=== PATIENT | female | born 1950 | race Caucasian/White ===

== ENCOUNTER 2016-09-03 09:20 | Day surgery (SDC) | payer MEDICARE ==
[~2016-09-03] VITALS: Ht 165.1 cm; Wt 115.7 kg
--- NOTE | 2016-09-03 07:52 | PCM.HPANE ---
Patient Data Surgeon Admitting Provider: Attending Provider:Rolando Guerrero MD Primary Care Physician:Niyah Byrd MD Other Provider:Lola Bautistaingham Anesthesia Reason for Visit Polyp Of Colon, Iron Defiency Ht/WT & BMI Body Mass Index Allergies Coded Allergies: Thiazides (Verified Allergy, Severe, HYPERURICEMIA, 09/02/16) furosemide (Verified Allergy, Unknown, 09/02/16) Past Anesthesia History Anesthesia History: Positive for:: Abnormal Airway (TOMATO GRADER NOTED "NARROW OROPHARNYX"), Difficult Intubation (At surgery in [place], patient told she was very difficult to place a breathing tube. She has had multiple surgeries at [facility] since then all with LMA's. ), Denies:: Anesthesia Reactions, Malignant Hyperthermia Diabetes History Hx Diabetes?: Yes Type of Diabetes: Type II Glycemic Control: Oral Medication MRSA MRSA: No Medications Blood Thinner: Aspirin Reported Medications Ranitidine (Zantac OTC)75 Mg Teeouz87 Mg PO DAILY #1 PKG Ref 0 09/02/16 Mometasone Furoate (Nasonex)17 Gm [place].pump1 [place] NS DAILY #1 PKG Ref 0 09/02/16 Gabapentin 600 Mg Mjuczh713 Mg PO BID Ref 0 09/02/16 Colchicine (Colcrys)0.6 Mg Tablet0.6 Mg PO PRN GOUT 09/02/16 Aspirin 81 Mg Vbulis84 Mg PO DAILY Ref 0 09/02/16 Citalopram 20 Mg Bmuxzv06 Mg PO DAILY Ref 0 05/24/15 Fluticasone Propionate (Flonase Allergy Relief)50 Mcg/Actuation [place].susp2 Ml NS BID 11/23/14 Amlodipine (Norvasc)5 Mg Lpwebz66 Mg PO DAILY 30 Days Ref 0 04/02/14 Probenecid/Colchicine 500-0.5 mg 1 Each Tablet1 Each PO DAILY 03/09/14 Atenolol 100 Mg Wlcclt10 Mg PO DAILY Ref 0 03/09/14 Fluoxetine 20 Mg Hgjqgps32 Mg PO DAILY Ref 0 12/23/13 Lovastatin 20 Mg Mtdfpy09 Mg PO HS Ref 0 12/23/13 Enalapril Maleate 20 Mg Sjzyrl97 Mg PO BID 12/23/13 Metformin 500 Mg Tablet1,000 Mg PO BID Ref 0 12/21/13 Methocarbamol 500 Mg Kxycbt482 Mg PO QID PRN PRN 12/21/13 Hydrocodone-Acetaminophen 5-325 mg 1 Each Tablet1 Each PO TID PRN For Pain Ref 0 12/21/13 Discontinued Reported Medications Oxycodone (Roxicodone)5 Mg Tablet5 Mg PO Q4H PRN For Pain Ref 0 09/02/16 Tramadol 50 Mg Qfglqz06 Mg PO TID PRN For Pain Ref 0 03/09/14 Temazepam 30 Mg Cap30 Mg PO HS PRN For Insomnia Ref 0 12/21/13 Cholecalciferol (Vitamin D3) (Vitamin D)2,000 Unit Capsule2,000 Unit PO DAILY 30 Days Ref 0 04/02/14 Ranitidine HCl (Acid Control)75 Mg Ooktdz48 Mg PO BID PRN For Dyspepsia or Heartburn 03/09/14 Albuterol HFA 8.5 Gm Hfa.aer.ad1-2 Puff IH Q4 PRN For Shortness of Breath #1 INHALER Ref 0 03/09/14 Aspirin (Aspir 81)81 Mg Tablet.dr81 Mg PO DAILY Ref 0 12/21/13 History History of ENT Problems?: No HEENT History: Positive for:: Abnormal Airway (TOMATO GRADER NOTED "NARROW OROPHARNYX") Denies:: Sinus Problem Denture Type: None Teeth Condition: Within Normal Limits Hx of Heart Problems?: Yes Cardiovascular History: Positive for:: Cardiac Surgery (atrio-septal repair 1994 [facility] W/ HEART CATH PRIOR TO SURGERY) Heart Murmur (ECHO 11/2011) Hypertension (HYPERLIPIDEMIA) Valvular Heart Disease (MILD AORTIC REGURG. ) Denies:: Chest Pain Congestive Heart Failure Edema Irregular Heartbeat Pacemaker Rheumatic Fever Thrombophlebitis Hx of Respiratory Problem?: Yes Respiratory History: Positive for:: Asthma (diagnosed in 1996) Dyspnea (ORELLANA) Denies:: COPD Emphysema Hemoptysis Tuberculosis Use of C-PAP Machine (?GRAYSON+) Hx Neurologic Problems?: Yes Neurological History: Positive for:: CVA (1994) Denies:: Alzheimer's Disease Dementia Dizziness Headaches Parkinson's Disease Seizures Hx of GI Problems?: Yes Hx of Problems?: Yes Genitourinary History: Positive for:: Kidney Stones Denies:: HX of Hemodialysis (HX OF RENAL INSUFFICIENCY (ESPECIALLY WHILE ON NSAIDS)) Urinary Tract Infection Female Hx: Denies:: Currently Endometriosis Pelvic Inflammatory Problems with Breasts? Skin History: Denies:: History Skin Disorders? Pressure Ulcers Hx Musculoskeletal Problems?: Yes Musculoskeletal History: Positive for:: Joint Replacement (S/P TKA) Musculoskeletal Trauma (S/P ORIF RT HUMERUS) Denies:: Back Injury Hx of Psycho/Social Problems?: Yes Psycho Social History: Positive for:: Hx Depression Denies:: Anxiety Bipolar Disorder Hx Surgeries?: Yes (TKA,HEART CATH FOLLOWED BY CARDIAC SURGERY,CERV. SPINE, BILAT CTR'S,ORIF RT ) Hx Any Other Health Problems?: Yes Other History: Positive for:: Hospitalization (CARDIAC) Denies:: Cancer Endocrine Disease Thyroid Disease History Blood Transfusions: Positive for:: Blood Transfusions Hx Diabetes: Yes Hx Alcohol Use: NoHx Substance Use: No Smoking Status: Former Smoker Have You Smoked inLast 12 mo: No Stop/Bang Risk Assessment Category Category 1A: Patient has history of documented sleep apnea, and HAS NOT received any narcotic, sedative or anesthesia administration during this stay. Category 1B: Patient has history of documented sleep apnea, and HAS received any narcotic , sedative or anesthesia administration during this stay Category 2: Patient has SUSPECTED Obstructive Sleep Apnea, and HAS received any narcotic , sedative or anesthesia administration during this stay. Category 3: Patient has SUSPECTED Obstructive Sleep Apnea and HAS NOT received narcotic, sedative or anesthesia administration during this stay. Category 4: Outpatient in Procedural Areas with known sleep apnea or who screen positive for High Risk via the STOP/BANG questionnaire. Exam Exam General Appearance: Alert, Oriented X3, Cooperative, Moderate Distress HEENT/AIRWAY: MP 4, Neck Movement (from, 75% expected rom) Lungs: Normal Air Movement Plan Impression Patient chart reviewed, patient interviewed and anesthestic plan with risks, benefits, and alternatives discussed, and informed consent obtained. ASA Physical Status: ASA3 Severe Disease Anesthetic Plan: GA Bene/Risks/Altern/Consents: Yes HP Complete Prior to Induction: Yes Yayo Phelan MD September 03, 2016 07:52
[~2016-09-03 09:20] MED LIST: AMLO-39 PO; ASPI-973 PO; ATEN100T PO; CITA20TA11 PO; COLC0.6T52 PO; COLC1TAB PO; ENAL20TA PO; FLUO20CA25 PO; FLUT9.9S NS; GABA600T2 PO; HYDR-4003 PO; LOVA20TA PO; METF500T4 PO; MOME17SP NS; OXYC-474 PO; RANI75TA21 PO; RES30 PO; ROB500 PO; TRAM50TA2 PO
[2016-09-03] MEDS ORDERED: fentaNYL-PF 50 mCg/mL 2 mL Inj ONE (09:21)
[2016-09-03] MEDS ORDERED: Propofol 10,000 mCg/mL 20 mL Inj ONE (09:21)
[2016-09-03 09:41] VITALS: BP 124/68; PULSE 64; RESP 16; O2SAT 94
[2016-09-03] MEDS: Lactated Ringer's 1,000 ML IV ONE ×3 (10:39→11:17)
[2016-09-03] MEDS ORDERED: Lactated Ringer's 1,000 ML IV SCH (10:49)
[2016-09-03] MEDS ORDERED: MetoCLOpramide 5 mg/mL 2 mL Inj IVPUSH PRN (10:50)
[2016-09-03] MEDS ORDERED: Ondansetron 2 mg/mL 2 mL Inj IVPUSH PRN (10:50)
[2016-09-03 11:22] VITALS: BP 99/63; PULSE 67; RESP 16; O2SAT 90
[2016-09-03 11:32] VITALS: BP 106/59; PULSE 55; RESP 16; O2SAT 92
[2016-09-03 11:39] VITALS: BP 121/69; PULSE 56; RESP 16; O2SAT 93
--- NOTE | 2016-09-03 11:41 | PCM.ANEP1 ---
Post Anesthesia Phase 1 PACU Phase 1 Assessment Vital Signs Vital Signs Date Time Temp Pulse Resp B/P Pulse Ox O2 Delivery O2 Flow Rate FiO2 09/03/16 11:39 56 16 121/69 93 Room Air 09/03/16 11:32 55 16 106/59 92 Room Air 09/03/16 11:22 67 16 99/63 90 Room Air 09/03/16 09:41 64 16 124/68 94 Room Air Anesthetic Administered: GA Level of Alertness: Awake, talking TAPIA's with Equal Strength: Yes Pain: No Nausea or Vomiting: No Cardiovascular Function and Hy: No Oxygen Delivery: Room Air Lungs: Normal Air Movement Complications: No Follow up Care: No Yayo Phelan MD September 03, 2016 11:41
--- NOTE | 2016-09-03 13:26 | ENDO ---
[address] [address] ENDOSCOPY PROCEDURE PATIENT: KAREN SANCHEZ V : 1950 MR#: [id number] ADMIT: 09/03/2016 JOB ID: [id number] PRIMARY PROVIDER: Niyah Byrd MD. PROCEDURE: Esophagogastroduodenoscopy with biopsies and a colonoscopy with cold forceps polypectomies. INDICATIONS: A 65-year-old female with a history of iron deficiency anemia and colon polyps. EQUIPMENT: PCF-H190DL and a GIF-H180J. SEDATION: Monitored anesthesia as provided by Dr. Balaji Phelan. COMPLICATIONS: None identified. BOWEL PREPARATION: Fair, adequate exam. PROCEDURE INFORMATION: After the risks and benefits were explained, written and verbal informed consent was obtained, the patient was brought into the endoscopy suite and placed into the left lateral decubitus position. Sedation was achieved using the above-stated medications with the addition of oxygen via nasal cannula. The scope was introduced into the mouth through the bite block and advanced to the second portion of the duodenum. The scope was slowly withdrawn to carefully examine the mucosa for any defects or lesions. Retroflexed views were accomplished in the stomach. The stomach was decompressed. The scope removed from the patient who tolerated the procedure well. The patient was then turned around, a digital rectal examination accomplished. No significant pathology appreciated. Mild internal hemorrhoids. The scope was introduced into the rectum and advanced to the cecum as identified by the appendiceal orifice and ileocecal valve. The terminal ileum was interrogated. The scope was then slowly withdrawn to carefully examine the mucosa for any defects or lesions. Multiple direct views were made through the dentate line for exclusion of pathology. The colon was decompressed. The scope removed from the patient who tolerated the procedure well. FINDINGS: 1. Duodenum. No visual abnormalities from the bulb through to the second portion. Random biopsies were taken for exclusion of sprue considering the iron deficiency picture. 2. Stomach: No ulcers, no mass lesions. No outlet obstruction. Random gastric biopsy was taken for exclusion of Helicobacter or any other underlying histopathology. Minimal gastropathy noted throughout. Retroflexed views of the LES were unremarkable. 3. Esophagus: The squamocolumnar junction correlated with the top of the gastric folds. The GEJ was at 39 cm from the incisors. No acute erosive changes. No strictures. No mass lesions. The remainder of the esophagus appeared normal. 4. Terminal ileum: This appeared visually normal. 5. Colon: No evidence of any proctocolitis. In the cecum and just opposite the ileocecal valve were a couple of very diminutive polyps, removed with cold forceps. Otherwise, no significant colonic pathology identified throughout. ENDOSCOPIC DIAGNOSES: 1. Minimal gastropathy. 2. Otherwise visually unremarkable esophagogastroduodenoscopy. 3. Diminutive colon polyps. 4. Hemorrhoids. RECOMMENDATIONS: 1. Await histopathology. 2. Repeat colonoscopy in five years. 3. No findings were made today to account for iron deficiency anemia. Capsule endoscopy is ordered.
--- NOTE | 2016-09-04 16:10 | PATH ---
SURGICAL PATHOLOGY Attending Physician:Earl Iverson CASE STATUS: Signed Out PATIENT NAME: KAREN SANCHEZ V. PID: [id number] : 1950 DATE COLLECTED:09/03/2016 19:49 SPECIMEN: 1: Duodenum, Biopsy 2: Gastric, Biopsy 3: Colon, Biopsy CLINICAL HISTORY: ANEMIA 1). DUODENUM BIOPSY 2). GASTRIC BIOPSY 3). CECAL POLYP FINAL DIAGNOSIS: 1. Duodenum, Biopsy: Duodenal mucosa with no diagnostic abnormality. Negative for active inflammation, features of sprue, dysplasia, and malignancy. 2. Gastric Biopsy: Portion of gastric body-type mucosa with no diagnostic abnormality. Negative for intestinal metaplasia, dysplasia, and malignancy. No definite Helicobacter organisms identified by H&E stain. Immunohistochemistry studies pending for H.pylori; results will be reported as an addendum. One detached fragment of duodenal mucosa with no diagnostic abnormality. 3. Cecum, Polyp, Biopsy: Portions of tubular adenoma x3; negative for high-grade dysplasia. ICD10: K63.5 GROSS DESCRIPTION: The specimen is received in three formalin filled containers labeled with the patient's name. 1). The specimen is sublabeled "duodenum" and consists of 3 portions of tissue which aggregate to 0.3 x 0.3 x 0.3 CM. The specimen is entirely submitted in cassette 1A. 2). The specimen is sublabeled "gastric" and consists of 2 portions of tissue which aggregate to 0.3 x 0.3 x 0.2 CM. The specimen is entirely submitted in cassette 2A. 3). The specimen is sublabeled "cecal polyp" and consists of 3 portions of tissue which aggregate to 0.3 x 0.3 x 0.3 CM. The specimen is totally submitted in cassette 3A. 09/03/2016 [facility] ICD-9 CODES: CPT CODES: 1: 58861 2: 66674, 60508 3: 94024 PROCEDURE/ADDENDA: Addendum SPI Addendum Diagnosis H. pylori RESULTS Gastric biopsy: Negative for H. pylori organisms by immunohistochemistry studies. The control tissue stained appropriately. * This test was developed and its performance characteristics determined by [employer]. It has not been cleared or approved by the U.S. Food and Drug Administration. The FDA has determined that such clearance or approval is not necessary. This test is used for clinical purposes. It should not be regarded as investigational or for research. Addendum Comment {Not Entered} Electronically Signed Out Alta Thacker MD Electronically Signed Out Alta Thacker MD [facility] Pathology [facility] [address], [place] [address] Technical component performed at [facility], [facility] [address], [place], [address]
== END 2016-09-03 23:59 | disposition home or self-care (01) ==
LOC: END 09:20
PROVIDERS: ATTEND Internal Medicine Gastroenterology
DX: D12.0 Benign neoplasm of cecum (principal); K64.8 Other hemorrhoids; Z86.010 Personal history of colon polyps; E83.110 Hereditary hemochromatosis; K31.9 Disease of stomach and duodenum, unspecified; I10 Essential (primary) hypertension; F32.9 Major depressive disorder, single episode, unspecified; K21.9 Gastro-esophageal reflux disease without esophagitis; G47.00 Insomnia, unspecified; G47.30 Sleep apnea, unspecified; J45.909 Unspecified asthma, uncomplicated; M79.7 Fibromyalgia; M19.90 Unspecified osteoarthritis, unspecified site; E78.5 Hyperlipidemia, unspecified; E11.9 Type 2 diabetes mellitus without complications; E66.9 Obesity, unspecified; Z68.41 Body mass index [BMI] 40.0-44.9, adult; Z79.82 Long term (current) use of aspirin; Z79.84 Long term (current) use of oral hypoglycemic drugs
CPT/HCPCS: 43239; 45380; J2250; J3010; J7120